=== PATIENT | female | born 1955 | race Hispanic/Latino ===

== ENCOUNTER 2018-07-26 20:10 | Emergency (ER) | payer BC ==
[~2018-07-26] VITALS: Ht 307.3 cm; Wt 69.4 kg
[~2018-07-26 20:10] MED LIST: FLAGYL250 MG; LEVAQUIN250 MG PO; NEXIUM40 MG PO; NORCO 10-325 T1 EACH PO; SENNA-S TABLET1 EA PO; ZOFRAN ODT4 MG SL
--- OUTSIDE RECORDS SUMMARY | 2018-07-26 20:13 | XMS REPORT | Clinical Summary ---
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 Active alendronate (FOSAMAX) 70 0 MG tablet 6 Active pantoprazole (PROTONIX) 2 40 MG EC tablet 6 Active methocarbamol (ROBAXIN) Take 1 tablet 20 tablet 0 500 MG tablet (500 mg 8 total) by mouth 3 (three) times a day as needed for muscle spasms for up to 20 doses. 05/30/2019 Active traMADol (ULTRAM) 50 mg Take 1 tablet 60 tablet 0 tablet (50 mg total) 9 by mouth every 4 (four) hours as needed for moderate pain. 05/15/2018 Discontinued acetaminophen-codeine Take 1 tablet 0 (TYLENOL WITH CODEINE #3) by mouth 300-30 mg per tablet every 4 (four) hours as needed for moderate pain. 05/18/2018 acetaminophen-codeine Take 1 tablet 10 tablet 0 (TYLENOL WITH CODEINE #3) by mouth 8 300-30 mg per tablet every 8 (eight) hours as needed for moderate pain for up to 10 doses. 06/14/2018 meloxicam (MOBIC) 7.5 mg Take 1 tablet 30 tablet 0 tablet (7.5 mg 8 total) by mouth daily as needed for mild pain or moderate pain for up to 30 days. Active Problems No known active problems Encounters Care Team Description Date Type Specialty Juan Rob MD Lumbar strain, initial encounter (Primary Dx); Lumbar radiculopathy; Right hip pain; Right leg pain 05/30/2018 Office Visit Sports Medicine Grace Adkins PA-C Wingkun, Neil-Jeremy Go, MD Acute bilateral low back pain with right-sided sciatica (Primary Dx) 05/15/2018 Emergency Emergency Medicine after 07/25/2017 Family History Medical History Relation Name Comments Heart disease Father Hypertension Mother Relation Name Status Comments Father Mother Social History Date Tobacco Use Types Packs/Day Years Used Current Every Day Smoker Cigarettes 0.25 20 Smokeless Tobacco: Never Used Tobacco Cessation: Ready to Quit: No; Counseling Given: Yes Alcohol Use Drinks/Week oz/Week Comments Yes social drinking Sex Assigned at Date Recorded Not on file Industry Job Start Date Occupation Not on file Not on file Not on file Travel End Travel History Travel Start No recent travel history available. Last Filed Vital Signs Time Taken Vital Sign Reading 05/30/2018 10:21 AM [employer] Blood Pressure 132/69 05/30/2018 10:21 AM [employer] Pulse 97 05/15/2018 3:13 PM [employer] Temperature 36.3 C (97.3 F) 05/15/2018 3:13 PM [employer] Respiratory Rate 22 05/15/2018 3:13 PM [employer] Oxygen Saturation 94% - Inhaled Oxygen - Concentration 05/15/2018 3:10 PM [employer] Weight 72.6 kg (160 lb) 05/15/2018 3:10 PM [employer] Height 154.9 cm (5' 1") 05/15/2018 3:10 PM [employer] Body Mass Index 30.23 Plan of Treatment Health Maintenance Due Date Last Done Comments CERVICAL CANCER SCREENING 1978 BREAST CANCER SCREENING 10/06/2007 COLON CANCER SCREENING 10/06/2007 SHINGLES VACCINES (#1) 10/06/2007 INFLUENZA VACCINE 12/19/2017 Procedures Comments Procedure Name Priority Date/Time Associated Diagnosis CT RENAL STONE PROTOCOL STAT 05/15/2018 6:03 PM [employer] LIPASE LEVEL STAT 05/15/2018 5:33 PM [employer] ESTIMATED GFR STAT 05/15/2018 5:33 PM [employer] COMPREHENSIVE METABOLIC STAT 05/15/2018 PANEL 5:33 PM [employer] URINALYSIS SCREEN AND STAT 05/15/2018 MICROSCOPY, WITH REFLEX 5:33 PM [employer] TO CULTURE HC COMPLETE BLD COUNT STAT 05/15/2018 W/AUTO DIFF 5:33 PM [employer] URINE CULTURE STAT 05/15/2018 5:33 PM [employer] after 07/25/2017 Results * CT Renal Stone Protocol (05/15/2018 6:03 PM [employer]) Narrative Performed At EXAMINATION:CT RENAL STONE PROTOCOL RADIANT CLINICAL HISTORY:flank pain TECHNIQUE: Multiple axial images of the abdomen and pelvis were obtained without intravenous administration of iodinated contrast. Sagittal and coronal computerized reformatted images were also obtained. The lack of intravenous contrast reduces the sensitivity of detecting solid organ disease. CT imaging was performed with iterative reconstruction technique and/or automated exposure control to reduce radiation dose. COMPARISON:None. FINDINGS: Large hiatal hernia. Minimal linear atelectasis versus scarring at each base. No free intraperitoneal air or fluid. Abdomen: Mild fatty infiltration of the liver. Area of decreased attenuation medial segment left lobe liver measuring approximately 2.6 cm. Postcontrast examination recommended. Spleen normal size. Gallbladder grossly unremarkable. No gross biliary dilatation. Adrenal glands normal size. Pancreas grossly unremarkable Abdominal aorta normal caliber with scattered mild atherosclerosis. No abdominal adenopathy. Scattered moderate diverticular change in the colon. No diverticulitis or bowel obstruction evident in the abdomen. No small bowel distention. Kidneys normal in size. No hydronephrosis. No renal calculi. No perinephric infiltration. Pelvis: Considerable diverticulosis of the colon. No diverticulitis. No bowel obstruction Normal appendix. Bladder grossly unremarkable. Uterus grossly unremarkable in appearance. No adnexal mass. No free fluid in the dependent pelvis Underlying osteopenia. Mild degenerative changes lower thoracic spine. No compressive abnormality. No lytic or blastic appearing bone lesions evident IMPRESSION: Vague 2.5 cm area of decreased attenuation left lobe liver medial segment with underlying background fatty infiltration. Post intravenous evaluation or MRI abdomen recommended Moderate diverticulosis without diverticulitis or bowel obstruction Normal appendix No tract calculus or obstruction on either side. Moderate hiatal hernia [id number] Procedure Note Interface, Radiology Results Incoming - 05/15/2018 6:15 PM [employer] EXAMINATION: CT RENAL STONE PROTOCOL CLINICAL HISTORY: flank pain TECHNIQUE: Multiple axial images of the abdomen and pelvis were obtained without intravenous administration of iodinated contrast. Sagittal and coronal computerized reformatted images were also obtained. The lack of intravenous contrast reduces the sensitivity of detecting solid organ disease. CT imaging was performed with iterative reconstruction technique and/or automated exposure control to reduce radiation dose. COMPARISON: None. FINDINGS: Large hiatal hernia. Minimal linear atelectasis versus scarring at each base. No free intraperitoneal air or fluid. Abdomen: Mild fatty infiltration of the liver. Area of decreased attenuation medial segment left lobe liver measuring approximately 2.6 cm. Postcontrast examination recommended. Spleen normal size. Gallbladder grossly unremarkable. No gross biliary dilatation. Adrenal glands normal size. Pancreas grossly unremarkable Abdominal aorta normal caliber with scattered mild atherosclerosis. No abdominal adenopathy. Scattered moderate diverticular change in the colon. No diverticulitis or bowel obstruction evident in the abdomen. No small bowel distention. Kidneys normal in size. No hydronephrosis. No renal calculi. No perinephric infiltration. Pelvis: Considerable diverticulosis of the colon. No diverticulitis. No bowel obstruction Normal appendix. Bladder grossly unremarkable. Uterus grossly unremarkable in appearance. No adnexal mass. No free fluid in the dependent pelvis Underlying osteopenia. Mild degenerative changes lower thoracic spine. No compressive abnormality. No lytic or blastic appearing bone lesions evident IMPRESSION: Vague 2.5 cm area of decreased attenuation left lobe liver medial segment with underlying background fatty infiltration. Post intravenous evaluation or MRI abdomen recommended Moderate diverticulosis without diverticulitis or bowel obstruction Normal appendix No tract calculus or obstruction on either side. Moderate hiatal hernia [id number] Performing Organization Address City/State/Zipcode Phone Number NABE[address] [place] [address] * Urinalysis screen and microscopy, with reflex to culture (05/15/2018 5:33 PM [employer]) Specimen site Clean catch [facility] Color, UA Yellow [facility] Appearance, UA Clear [facility] Specific gravity, UA 1.017 1.001 - 1.035 [facility] pH, UA 5.0 5.0 - 8.5 [facility] Protein, UA Negative Negative [facility] Glucose, UA Negative Negative [facility] Ketones, UA Negative Negative [facility] Bilirubin, UA Negative Negative [facility] Blood, UA Negative Negative [facility] Nitrite, UA Negative Negative [facility] Urobilinogen, UA Negative <2.0 [facility] Leukocyte esterase, UA Negative Negative [facility] Epithelial cells, UA Many /HPF [facility] Round epithelial cells, Few 0 - 1 /HPF [facility] WBC, UA 0-5 0 - 4 /HPF [facility] RBC, UA 0-5 0 - 5 /HPF [facility] Bacteria, UA None seen None seen [facility] Yeast, UA None seen [facility] Yeast with pseudohyphae, None seen [facility] Specimen Urine Performing Organization Address [facility] Phone Number [address] [place] [address] PATHOLOGY AND GENOMIC MEDICINE [address] * Estimated GFR (05/15/2018 5:33 PM [employer]) Estimated GFR 80 mL/min/1.73 m2 [facility] Comment: [facility] CatergoryUnitsInte rpretation G1 >=90 Normal or high G2 60-89Mildly decreased [id number] Mildly to moderately decreased L3n37-29 Moderately to severely decreased G4 15-29Severely decreased G5 <15Kidney failure The eGFR was calculated using the Chronic Kidney Disease Epidemiology Collaboration (CKD-EPI) equation. Interpretation is based on recommendations of the National Kidney Foundation-Kidney Disease Outcomes Quality Initiative (NKF-KDOQI) published in 2014. Specimen Plasma specimen Performing Organization Address City/[facility] Phone Number [address] [place] [address] PATHOLOGY AND GENOMIC MEDICINE [address] * CBC with platelet and differential (05/15/2018 5:33 PM [employer]) WBC 9.28 4.50 - 11.00 k/uL [facility] RBC 4.20 4.20 - 5.50 m/uL [facility] HGB 13.0 12.0 - 16.0 g/dL [facility] HCT 40.2 37.0 - 47.0 % [facility] MCV 95.7 82.0 - 100.0 fL [facility] MCH 31.0 27.0 - 34.0 pg [facility] MCHC 32.3 31.0 - 37.0 g/dL [facility] RDW - SD 48.8 37.0 - 55.0 fL [facility] MPV 9.3 8.8 - 13.2 fL [facility] Platelet count 296 150 - 400 k/uL [facility] Nucleated RBC 0.00 /100 WBC [facility] Neutrophils 62.6 39.0 - 69.0 % [facility] Lymphocytes 29.4 25.0 - 45.0 % [facility] Monocytes 5.6 0.0 - 10.0 % [facility] Eosinophils 1.6 0.0 - 5.0 % [facility] Basophils 0.5 0.0 - 1.0 % [facility] Specimen Blood Performing Organization Address City/[facility] Phone Number [address] [place] [address] PATHOLOGY AND GENOMIC MEDICINE [address] * Urine culture (05/15/2018 5:33 PM [employer]) Urine culture SEE COMMENTComment: [facility] Bacteriuria screen negative. [facility] Specimen Urine Performing Organization Address City/[facility] Phone Number [address] [place] [address] PATHOLOGY AND GENOMIC MEDICINE [address] * Lipase level (05/15/2018 5:33 PM [employer]) Lipase 28 13 - 60 U/L [facility] Specimen Plasma specimen Performing Organization Address City/[facility] Phone Number [facility] [address] [place] [address] PATHOLOGY AND GENOMIC MEDICINE [address] * Comprehensive metabolic panel (05/15/2018 5:33 PM [employer]) Sodium 140 135 - 148 mEq/L [facility] Potassium 4.4 3.5 - 5.0 mEq/L [facility] Chloride 103 98 - 112 mEq/L [facility] CO2 25 24 - 31 mEq/L [facility] Anion gap 12@ANIO 7 - 15 mEq/L [facility] BUN 21 8 - 23 mg/dL [facility] Creatinine 0.80 0.50 - 0.90 mg/dL [facility] Glucose 101 (H) 65 - 99 mg/dL [facility] Calcium 9.3 8.8 - 10.2 mg/dL [facility] Protein 7.7 6.3 - 8.3 g/dL [facility] Comment: [facility] [place] 4.6-7.0 g/dL 1 week 4.4-7.6 g/dL 7 months-1year 5.1-7.3 g/dL 1-2 years5.6-7 .5 g/dL >3 years6.0-8 .0 g/dL 18-150 6.3-8.3 g/dL Albumin 4.4 3.5 - 5.0 g/dL [facility] A/G ratio 1.3 0.7 - 3.8 [facility] Alkaline phosphatase 98 35 - 104 U/L [facility] AST 16 10 - 35 U/L [facility] ALT 15 5 - 50 U/L [facility] Total bilirubin <0.2 0.0 - 1.2 mg/dL [facility] Specimen Plasma specimen Performing Organization Address City/[facility]/Zipcode Phone Number [facility] [address] [place] [address] PATHOLOGY AND GENOMIC MEDICINE [address] [place] [address] [facility] after 07/25/2017 Insurance Payer Benefit Subscriber ID Type Phone Address Plan / Group BCBS BCBS xxxxxxxxxxxx PPO CHOICE PPO/[employer] PPO Advance Directives Patient has advance care planning documents on file. For more information, reyes plascencia contact: Fransico Yoo [address] [place] [address]
--- OUTSIDE RECORDS SUMMARY | 2018-07-26 20:13 | XMS REPORT ---
Author [facility] Address Unknown Phone Unavailable Care Team Providers Care Pressure Vessel Inspector Name Role Phone Unavailable Unavailable Problems This patient has no known problems. Allergies, Adverse Reactions, Alerts This patient has no known allergies or adverse reactions. Medications This patient has no known medications. Results Test Description Test Time Test Comments Text Results Atomic Results Result Comments BREAST ULTRASOUND BILATERAL 2018-04-03 08:23:36 - DIAG MAMM BILATERAL KYRA CAD DIGITALBILATERAL DIGITAL DIAGNOSTIC MAMMOGRAM 3D/2D WITH CAD: 04/02/2018CLINICAL: Follow up to previous exam. Digital breast tomosynthesis was performed in addition to routine CC and MLO views. Current mammographic images were evaluated by either a [facility] M-Vu or a [employer] ImageChecker CAD (computer aided detection system). Comparison is made to exams dated 12/04/2016 mammogram, 03/02/2016 mammogram, and 02/29/2016 mammogram - [facility]. The tissue of both breasts is heterogeneously dense. This may lower the sensitivity of mammography. No suspicious mass, architectural distortion, malignant type calcification, or lymph node abnormality detected. INCOMPLETE ASSESSMENT: ADDITIONAL IMAGING EVALUATION RECOMMENDEDUltrasound pending for additional evaluation. Resume annual screening mammography in one year. - BREAST ULTRASOUND BILATERALULTRASOUND OF BOTH BREASTS AND BOTH AXILLA: 04/02/2018Comparison is made to exams dated 12/04/2016 mammogram, 03/02/2016 mammogram, and 02/29/2016 mammogram - [facility]. Real-time ultrasound of both breasts and both axilla was performed. No abnormalities were seen sonographically in either axilla. Benign solid and cystic masses were seen. No evidence of malignancy was seen. Unchanged from the previous studies. IMPRESSION: BENIGN There is no sonographic evidence of malignancy. Patient has been informed that she has areas of dense breast tissue that could make it difficult to find a small cancer. A screening mammogram and supplemental ultrasound for dense breast tissue is recommended in 1 year.Maty Williamson M.D. dm/:04/03/2018 08:23:36 Medical Economics Consultant: [facility], [facility]: BIRADS 1-2 Combo FU Letter Mammogram BI- RADS: 0 Indeterminate Ultrasound BI-RADS: 2 Benign DIAG MAMM BILATERAL KYRA CAD DIGITAL 2018-04-03 08:23:36 - DIAG MAMM BILATERAL KYRA CAD DIGITALBILATERAL DIGITAL DIAGNOSTIC MAMMOGRAM 3D/2D WITH CAD: 04/02/2018CLINICAL: Follow up to previous exam. Digital breast tomosynthesis was performed in addition to routine CC and MLO views. Current mammographic images were evaluated by either a [facility] M-Vu or a [employer] CAD (computer aided detection system). Comparison is made to exams dated 12/04/2016 mammogram, 03/02/2016 mammogram, and 02/29/2016 [facility]. The tissue of both breasts is heterogeneously dense. This may lower the sensitivity of mammography. No suspicious mass, architectural distortion, malignant type calcification, or lymph node abnormality detected. INCOMPLETE ASSESSMENT: ADDITIONAL IMAGING EVALUATION RECOMMENDEDUltrasound pending for additional evaluation. Resume annual screening mammography in one year. - BREAST ULTRASOUND BILATERALULTRASOUND OF BOTH BREASTS AND BOTH AXILLA: 04/02/2018Comparison is made to exams dated 12/04/2016 mammogram, 03/02/2016 mammogram, and 02/29/2016 [facility]. Real-time ultrasound of both breasts and both axilla was performed. No abnormalities were seen sonographically in either axilla. Benign solid and cystic masses were seen. No evidence of malignancy was seen. Unchanged from the previous studies.
[2018-07-26 22:20] LABS: BASOPHILS # (AUTO) 0.1 (0.0-0.1); BASOPHILS % 0.5 % (0.0-1.0); EOSINOPHILS # (AUTO) 0.2 (0.0-0.4); EOSINOPHILS % 2.2 % (0.0-6.0); HEMATOCRIT 41.4 % (34.2-44.1); HEMOGLOBIN 13.5 g/dL (12.0-16.0); LYMPHOCYTES # (AUTO) 3.1 (1.0-3.2); LYMPHOCYTES % 33.8 % (18.0-39.1); MEAN CORPUSCULAR HEMOGLOBIN 30.3 pg (28-32); MEAN CORPUSCULAR HGB CONC 32.6 g/dL (31-35); MONOCYTES # (AUTO) 0.5 (0.2-0.8); MONOCYTES % 5.8 % (4.4-11.3); NEUTROPHILS # (AUTO) 5.3 (2.1-6.9); NEUTROPHILS % 57.6 % (38.7-80.0); PLATELET COUNT 329 x10e3/uL (140-360); RED BLOOD COUNT 4.45 x10e6/uL (3.6-5.1); RED CELL DISTRIBUTION WIDTH 12.9 % (11.7-14.4)
[2018-07-26 22:33] LABS: ALANINE AMINOTRANSFERASE 16 IU/L (0-55); ALBUMIN 3.9 g/dL (3.5-5.0); ALKALINE PHOSPHATASE 101 IU/L (40-150); ANION GAP 12.9 mmol/L (8-16); BLOOD UREA NITROGEN 14 mg/dL (7-26); BUN/CREATININE RATIO 16 (6-25); CALCIUM 9.9 mg/dL (8.4-10.2); CARBON DIOXIDE 25 mmol/L (22-29); CHLORIDE 103 mmol/L (98-107); CREATINE KINASE 89 IU/L (29-168); CREATININE, SERUM 0.86 mg/dL (0.57-1.11); EST GLOMERULAR FILTRATION RATE > 60 ML/MIN (60-); GLUCOSE 99 mg/dL (74-118); POTASSIUM 3.9 mmol/L (3.5-5.1); SODIUM 137 mmol/L (136-145)
--- NOTE | 2018-07-26 23:04 | Diagnostic Imaging Report ---
EXAMINATION: CHEST 2 VIEWS INDICATION: HTN, [place] COMPARISON: None FINDINGS: PA and lateral views TUBES and LINES: None. LUNGS: Lungs are well inflated. Mild bibasilar atelectasis. There is no evidence of pneumonia or pulmonary edema. PLEURA: No pleural effusion or pneumothorax. HEART AND MEDIASTINUM: The cardiomediastinal silhouette is unremarkable. BONES AND SOFT TISSUES: No acute osseous lesion. Soft tissues are unremarkable. UPPER ABDOMEN: No free air under the diaphragm. Small hiatal hernia. IMPRESSION: No acute thoracic abnormality. Signed by: DR. Les Gonzalez MD on 07/26/2018 11:00 PM
[2018-07-27 00:48] VITALS: BP 132/80
== END 2018-07-27 00:58 | disposition home or self-care (01) ==
LOC: ER 20:10
DX: R51 Headache (principal); I10 Essential (primary) hypertension; Z87.19 Personal history of other diseases of the digestive system
CPT/HCPCS: 36415; 71046; 80053; 82550; 82553; 84484; 85025; 93005; 99283

== ENCOUNTER 2019-10-15 11:14 | Outpatient (RCR) | payer BC | END 2019-10-19 | LOC: PT 11:14 | PROVIDERS: ATTEND Specialist | DX: M25.561 Pain in right knee (principal) ==

== ENCOUNTER 2019-10-20 11:04 | Outpatient (RCR) | payer BC | END 2019-11-18 | LOC: PT 11:04 | PROVIDERS: ATTEND Specialist | DX: M25.561 Pain in right knee (principal) ==